=== PATIENT | male | born 1980 | race Two or more races ===

== ENCOUNTER 2022-03-10 21:29 | Emergency (ER) | payer MEDICAID, OTHER ==
[~2022-03-10] VITALS: Ht 175.3 cm; Wt 72.6 kg
[2022-03-10 21:35] VITALS: BP 120/79
== END 2022-03-10 23:27 ==
LOC: ER 21:29
DX: F10.129 Alcohol abuse with intoxication, unspecified (principal); F17.210 Nicotine dependence, cigarettes, uncomplicated; Y90.9 Presence of alcohol in blood, level not specified